=== PATIENT | female | born 1985 | race Caucasian/White ===

== ENCOUNTER 2021-02-22 23:00 | Inpatient (IN) | payer OTHER, SELFPAY ==
[~2021-02-22] VITALS: Ht 170.2 cm; Wt 90.7 kg
[2021-02-23 00:56] LABS: BASOPHILS % (AUTO) 0.4 % (0.0-2.0); EOSINOPHILS # (AUTO) 0.2 K/uL (0-0.4); EOSINOPHILS % (AUTO) 1.4 % (0.0-4.0); HEMATOCRIT 33.8 % (36-48); HEMOGLOBIN 11.4 g/dL (12.0-16.0); LYMPHOCYTES # (AUTO) 2.3 K/uL (2.5-16.5); MEAN CORPUSCULAR HEMOGLOBIN 29 pg (27-31); MEAN CORPUSCULAR HGB CONC 34 g/dL (33-37); MEAN CORPUSCULAR VOLUME 86.1 fL (80-94); MONOCYTES # (AUTO) 0.9 K/uL (0.8-1.0); MONOCYTES % (AUTO) 7.9 % (1.7-9.3); NEUTROPHILS # (AUTO) 8.1 K/uL (1.8-7.7); NEUTROPHILS % (AUTO) 70.3 % (42.2-75.2); PLATELET COUNT (AUTO) 234 K/uL (140-450); RED BLOOD CELL COUNT(AUTO) 3.92 MIL/uL (4.20-5.40); RED CELL DISTRIBUTION WIDTH 15.3 % (11.6-13.7); WHITE BLOOD COUNT (AUTO) 11.5 K/uL (4.8-10.8)
[2021-02-23 00:57] LABS: APPEARANCE,URINE CLEAR (CLEAR); BILIRUBIN,URINE NEGATIVE (NEGATIVE); BLOOD, URINE 1+ (NEGATIVE); COLOR,URINE YELLOW (YELLOW); LEUKOCYTE ESTERASE ,URINE NEGATIVE (NEGATIVE); NITRITE, URINE NEGATIVE (NEGATIVE); UGLUCOSE NEGATIVE (NEGATIVE)
[2021-02-23] MEDS ORDERED: MORPHINE SULFATE 5 MG/ML VIAL IVP PRN (01:00)
[2021-02-23] MEDS ORDERED: ONDANSETRON 4 MG/2 ML VIAL IVP PRN (01:00)
[2021-02-23 01:12] LABS: BARBITURATE, URINE NEGATIVE ng/ml (NEG <=200); BENZODIAZEPINE, URINE NEGATIVE ng/mL (NEG <=200); CANNABINOID, URINE NEGATIVE ng/mL (NEG <=50); COCAINE, URINE NEGATIVE ng/mL (NEG <=300); OPIATE, URINE NEGATIVE ng/mL (NEG <=2000); PHENCYCLIDINE SCREEN,URINE NEGATIVE ng/mL (NEG <=25)
[2021-02-23 01:15] LABS: RBC,URINE 0-5 /HPF (0-5); WBC,URINE 0-5 /HPF (0-5)
[2021-02-23 01:17] LABS: ALBUMIN 2.6 g/dL (3.4-5.0); ANION GAP 12.6 (8-16); CARBON DIOXIDE 24.2 mmol/L (21-32); CREATININE 0.6 mg/dL (0.6-1.3); POTASSIUM 3.8 mmol/L (3.5-5.1); TOTAL BILIRUBIN 0.3 mg/dL (0.0-1.0)
[2021-02-23] MEDS ORDERED: OXYTOCIN 20 UNITS in LACTATED RINGERS 1,000 ML IV SCH (01:30)
[2021-02-23] MEDS ORDERED: OXYTOCIN 20 UNITS/LR PREMIX 1,000 ML IV ONE (01:50)
[2021-02-23] MEDS: LACTATED RINGERS 1,000 ML IV SCH ×2 (02:06→08:25)
[2021-02-23 05:16] VITALS: BP 115/62
--- NOTE | 2021-02-23 11:03 | NUR ---
PATIENT HAS BEEN SCREENED AND CATEGORIZED LOW NUTRITION RISK. PATIENT WILL BE SEEN WITHIN 7 DAYS OF ADMISSION. 03/01/[address]
[2021-02-23] MEDS ORDERED: VITA-415 PO (16:05)
[2021-02-23] MEDS ORDERED: PNV91TAB8 PO (16:05)
== END 2021-02-23 16:58 | disposition home or self-care (01) | DRG 833 ==
LOC: MLD 23:00
PROVIDERS: ADMIT Obstetrics & Gynecology; ATTEND Obstetrics & Gynecology
DX: O48.0 Post-term pregnancy (principal); Z3A.41 41 weeks gestation of pregnancy; Z20.822 Contact with and (suspected) exposure to COVID-19
CPT/HCPCS: 36415; 76815; 80053; 80305; 81001; 85025; 86592; 86762; 86886; 86900; 86901; 87086; 87340; J2590

== ENCOUNTER 2021-03-02 12:14 | Inpatient (IN) | payer OTHER, SELFPAY ==
[~2021-03-02] VITALS: Ht 170.2 cm; Wt 74.8 kg
[~2021-03-02 12:14] MED LIST: PNV91TAB8 PO; VITA-415 PO
[2021-03-02] MEDS ORDERED: OXYTOCIN 20 UNITS in LACTATED RINGERS 1,000 ML IV SCH (12:25)
[2021-03-02] MEDS ORDERED: CARBOPROST 250 MCG/ML AMP IM PRN (12:25)
[2021-03-02] MEDS ORDERED: MORPHINE SULFATE 5 MG/ML VIAL IVP PRN (12:25)
[2021-03-02] MEDS ORDERED: ONDANSETRON 4 MG/2 ML VIAL IVP PRN (12:25)
[2021-03-02] MEDS ORDERED: METHYLERGONOVINE 0.2 MG/ML AMP IM PRN (12:25)
[2021-03-02] MEDS ORDERED: OXYTOCIN 20 UNITS/LR PREMIX 1,000 ML IV ONE (12:38)
[2021-03-02 13:00] VITALS: BP 106/65
[2021-03-02 13:04] LABS: APPEARANCE,URINE CLEAR (CLEAR); BILIRUBIN,URINE NEGATIVE (NEGATIVE); BLOOD, URINE NEGATIVE (NEGATIVE); COLOR,URINE YELLOW (YELLOW); LEUKOCYTE ESTERASE ,URINE NEGATIVE (NEGATIVE); NITRITE, URINE NEGATIVE (NEGATIVE); UGLUCOSE NEGATIVE (NEGATIVE)
[2021-03-02 13:15] LABS: BASOPHILS % (AUTO) 0.3 % (0.0-2.0); EOSINOPHILS # (AUTO) 0.1 K/uL (0-0.4); HEMATOCRIT 35.3 % (36-48); LYMPHOCYTES # (AUTO) 1.6 K/uL (2.5-16.5); MEAN CORPUSCULAR HEMOGLOBIN 29 pg (27-31); MEAN CORPUSCULAR HGB CONC 34 g/dL (33-37); MEAN CORPUSCULAR VOLUME 85.7 fL (80-94); MONOCYTES # (AUTO) 0.5 K/uL (0.8-1.0); MONOCYTES % (AUTO) 5.4 % (1.7-9.3); NEUTROPHILS # (AUTO) 7.1 K/uL (1.8-7.7); NEUTROPHILS % (AUTO) 76.3 % (42.2-75.2); PLATELET COUNT (AUTO) 232 K/uL (140-450); RED BLOOD CELL COUNT(AUTO) 4.12 MIL/uL (4.20-5.40); RED CELL DISTRIBUTION WIDTH 15.9 % (11.6-13.7); WHITE BLOOD COUNT (AUTO) 9.3 K/uL (4.8-10.8)
[2021-03-02] MEDS: LACTATED RINGERS 1,000 ML IV SCH ×2 (13:20→20:47)
[2021-03-03] MEDS ORDERED: MORPHINE SULFATE 10 MG/ML VIAL ONE (00:15)
[2021-03-03] MEDS ORDERED: MISOPROSTOL 100 MCG TAB RC PRN (00:45)
[2021-03-03] MEDS ORDERED: BENZOCAINE/MENTHOL 20%-0.5% 60 GM CAN TP PRN (01:45)
[2021-03-03] MEDS ORDERED: METHYLERGONOVINE 0.2 MG TAB PO PRN (01:45)
[2021-03-03] MEDS ORDERED: OXYTOCIN 10 UNITS/ML VIAL IM PRN (01:45)
[2021-03-03] MEDS ORDERED: bisacodyL 5 MG TABEC PO PRN (01:45)
[2021-03-03] MEDS ORDERED: MEASLES, MUMPS, AND RUBELLA 1 VIAL SQVAC ONE (01:45)
[2021-03-03] MEDS ORDERED: SIMETHICONE 80 MG TAB.CHEW PO PRN (01:45)
[2021-03-03] MEDS ORDERED: oxyCODONE/APAP 5/325 MG 1 TAB TAB PO PRN (01:45)
[2021-03-03] MEDS ORDERED: METHYLERGONOVINE 0.2 MG/ML AMP IM PRN (01:45)
[2021-03-03] MEDS ORDERED: IBUPROFEN 600 MG TAB PO PRN ×2 (01:45)
[2021-03-03] MEDS ORDERED: DOCUSATE SODIUM 100 MG GELCAP PO PRN (01:45)
--- NOTE | 2021-03-03 08:43 | NUR ---
PATIENT HAS BEEN SCREENED AND CATEGORIZED LOW NUTRITION RISK. PATIENT WILL BE SEEN WITHIN 7 DAYS OF ADMISSION. 03/09/[address]
== END 2021-03-03 16:30 | disposition home or self-care (01) | DRG 807 ==
LOC: MLD 12:14 → MFCC 03-03 04:29
PROVIDERS: ADMIT Obstetrics & Gynecology; ATTEND Obstetrics & Gynecology
PROC: 10E0XZZ Delivery of Products of Conception, External Approach (ICD-10-PCS; principal; 2021-03-03)
DX: O48.0 Post-term pregnancy (principal); Z37.0 Single live birth; Z3A.42 42 weeks gestation of pregnancy; Z20.822 Contact with and (suspected) exposure to COVID-19
CPT/HCPCS: 36415; 59409; 81003; 85025; 86592; 86886; 86900; 86901; J2270; J2405; J2590